=== PATIENT | female | born 1995 | race Caucasian/White ===

== ENCOUNTER 2024-06-23 12:43 | Emergency (ER) | payer OTHER ==
[~2024-06-23] VITALS: Ht 157.5 cm; Wt 56.8 kg
[2024-06-23 12:46] VITALS: BP 126/91; PULSE 98; RESP 16; TEMP 97.4; O2SAT 99
[2024-06-23] MEDS: LIDOcaine 1% W/epiNEPHrine 1:100,000 20ml vial SQ STA (14:15)
== END 2024-06-23 16:37 | disposition home or self-care (01) ==
LOC: ER 12:43
DX: S61.213A Laceration without foreign body of left middle finger without damage to nail, initial encounter (principal); Z88.2 Allergy status to sulfonamides; J45.909 Unspecified asthma, uncomplicated
CPT/HCPCS: 12002; 99282; A6222; J3490; A6258; A6449